=== PATIENT | female | born 1950 | race Caucasian/White ===

== ENCOUNTER 2017-03-14 12:55 | Emergency (ER) | payer OTHER ==
--- NOTE | ~2017-03-14 | CT2 ---
[facility] A Service of [facility] RADIOLOGY TEXT RESULTS PATIENT: ONI VERMA LOCATION: SED : 48 UNIT #: [id number] AGE: [address]: Kamar Elizabeth MD SEX: F ORDER DR: [id number] [place] [id number] E MR#: [id number] Acc #: [id number] NAME: ONI VERMA : 1950 SEX: F STUDY DATE/TIME: 03/14/2017 14:08 UNIT: SED ROOM: STUDY DESCRIPTION: CT Abd and Pelv W Cont Attending Physician: Kamar Elizabeth M.D. Ordering Physician: Kamar Elizabeth M.D. Primary Care Physician: Primary Care Physician No MEDICAL IMAGING REPORT This report is preliminary unless electronic signature is present. EXAM CT abdomen and pelvis, 03/14 INDICATION Mid abdominal pain with diarrhea for 1 day. Pain currently rates 8/10. TECHNIQUE Axial images were obtained through the abdomen and pelvis following IV contrast administration. Multiplanar reformats were obtained. This CT exam was performed with one or more of the following radiation dose reduction techniques: automatic exposure control, adjustment of mA and/or kV according to patient size, and iterative reconstruction. COMPARISON No comparison. FINDINGS ABDOMEN: Lung bases are clear except for some dependent atelectasis. Gallbladder appears normal. There is no biliary obstruction. The solid abdominal organs are normal. There is no adenopathy or free fluid. There is some wall thickening in the descending colon suggesting segmental colitis. The remainder of the GI tract is within normal limits. PELVIS: The appendix is normal. The remainder of the GI tract is normal as well. Solid pelvic organs are normal. The urinary bladder is normal. No free fluid is identified. IMPRESSION 1. Mild wall thickening in the descending colon suggesting segmental colitis. The remainder of the GI tract, including the appendix, is normal. 2. Remainder of the abdomen and pelvis CT is within normal limits as [facility] A Service of [facility] RADIOLOGY TEXT RESULTS PATIENT: ONI VERMA LOCATION: SED : 48 UNIT #: [id number] AGE: [address]: Kamar Elizabeth MD SEX: F ORDER DR: bayron. Dictated by... Joe Guzmán Jr., M.D. THIS IS AN ELECTRONICALLY VERIFIED REPORT Joe Guzmán Jr., M.D. at 03/14/2017 5:05 PM ROCHELLE/luisana TD: 03/14/2017 15:49 JOB #: [id number] MEDICAL IMAGING REPORT Page 1 of 1
[~2017-03-14 12:55] MED LIST: HCTZ PO; ZOCOR PO
[2017-03-14 13:34] LABS: BASOPHIL% 0.4 % (0-2.5); EOSINOPHIL% 0.2 % (0.0-7.0); HEMATOCRIT 42.3 % (35.0-45.0); HEMOGLOBIN 13.6 gm/dL (12.0-16.0); LYMPHOCYTE% 21.9 % (17.0-45.0); MEAN CORPUSCULAR HEMOGLOBIN 24.5 PG (28-34); MEAN CORPUSCULAR HGB CONC 32.3 g/dL (30-36); MEAN PLATELET VOLUME 6.8 FL (6.5-11.5); MONOCYTE# 0.6 X10e3 (0-1.0); MONOCYTE% 6.8 % (3.0-12.0); NEUTROPHIL# 6.5 X10e3 (1.5-7.1); NEUTROPHIL% 70.7 % (40-75); PLATELET COUNT 396 X10e3 (140-420); RED BLOOD COUNT 5.57 X10e (3.90-5.30); RED CELL DISTRIBUTION WIDTH 13.9 % (11.0-15.5); WHITE BLOOD COUNT 9.2 X10e3 (4.0-10.5)
[2017-03-14 13:45] LABS: DIFF IND NO
[2017-03-14 13:54] LABS: URINE SOURCE CLEAN CATCH
[2017-03-14 13:58] LABS: ALBUMIN SERUM 4.2 g/dL (3.5-5.0); BILIRUBIN, DIRECT 0.1 mg/dL (0.0-0.2); BILIRUBIN,INDIRECT 0.6 mg/dL (0.0-0.9); BILIRUBIN,TOTAL 0.7 mg/dL (0.2-2.0); CALCIUM SERUM 9.8 mg/dL (8.4-10.2); CREATININE SERUM 0.7 mg/dL (0.6-1.4); POTASSIUM 3.4 mmol/L (3.5-5.1); PROTEIN TOTAL SERUM 8.3 g/dL (6.0-8.3)
[2017-03-14 13:58] LABS: URINE APPEARANCE CLEAR; URINE BILIRUBIN NEG (NEG); URINE BLOOD NEG (NEG); URINE COLOR YELLOW; URINE GLUCOSE NEG (NORM); URINE KETONE NEG (NEG); URINE LEUKOCYTE ESTERASE NEG (NEG); URINE NITRATE NEG (NEG); URINE PROTEIN NEG (NEG); URINE SPECIFIC GRAVITY <=1.005 (1.003-1.035); URINE UROBILINOGEN 0.2 MG/DL (NORM)
[2017-03-14 14:04] LABS: MICRO INDICATED? NO
[2017-06-06] MEDS ORDERED: CENTRUM PO (06:28)
[2017-06-06] MEDS ORDERED: BENTYL20 MG PO (06:29)
[2017-06-06] MEDS ORDERED: HYDROCHLOROTHIA25 MG PO (06:29)
== END 2017-03-14 15:52 | disposition home or self-care (01) ==
LOC: SED 12:55
PROVIDERS: Emergency Medicine
DX: K52.9 Noninfective gastroenteritis and colitis, unspecified (principal); I10 Essential (primary) hypertension
CPT/HCPCS: 36415; 74177; 80048; 80076; 81003; 83690; 85025; 96361; 96365; 96375; 99284; C9113; J1956; J2405; Q9967

== ENCOUNTER → 2017-06-06 | Day surgery (SDC) | payer OTHER ==
[~2017-06-06] MED LIST changes: +BENTYL20 MG PO; +CENTRUM PO; +HYDROCHLOROTHIA25 MG PO
--- NOTE | ~2017-06-06 | OR ---
Unit #: [id number] #: [id number] Patient: ONI VERMA [id number] [address] [place], [place] [address] [id number] MR#: [id number] NAME: ONI VERMA ROOM: Date of Procedure: 06/06/2017 Admission Date: 06/06/2017 Surgeon: Eleazar Rome Jr., M.D. : 1950 Attending Physician: Eleazar Rome Jr., M.D. OPERATIVE REPORT INDICATIONS FOR PROCEDURE The patient is a 66-year-old [place] female who recently presented to the office complaining of some intermittent rectal bleeding. She has had no previous colonoscopy and is brought in at this time for colonoscopy to determine the source of her bleeding. She understands the procedure including the risks, including that of perforation and bleeding, and consents. PREOPERATIVE DIAGNOSIS Lower gastrointestinal bleeding etiology? POSTOPERATIVE DIAGNOSES Multiple large dilated internal hemorrhoids, probably a source of her bleeding with a small polyp in the cecum 1 mm diameter. There were no other specific abnormalities. ANESTHESIA MAC anesthesia. PROCEDURES PERFORMED Flexible colonoscopy to the distal ileum with biopsy of a small cecal polyp. DESCRIPTION OF PROCEDURE The patient was positioned in Magallanes position with left side down. After being given MAC anesthesia, digital rectal examination was performed, which revealed no palpable masses or tenderness. No blood or stool in the rectal ampulla. Multiple internal hemorrhoids that were dilated were palpable. The Olympus colonoscope was advanced through the anal canal up in the rectum and retroflexed down to the area of the anorectal region. There were large dilated internal hemorrhoids, which were not actively bleeding and no evidence of any fissures. The scope was then straightened and advanced up the rectosigmoid, in the sigmoid, descending colon areas, around the splenic flexure and the transverse colon, around the hepatic flexure and ascending colon, down to the area of the cecum. The light pipe of the scope could be seen transilluminating through the right lower quadrant abdominal wall area. There was a small cecal polyp, which was biopsied and removed with one bite with the cold biopsy forceps without bleeding. The scope was advanced up the distal ileum approximately 10 to 12 inches. There was no evidence of any ileitis or inflammatory bowel disease. The scope was slowly removed. There were no tumors except for the one polyp. No other polyps, no cancer, no AVMs. No evidence any Unit #: [id number] #: [id number] Patient: URAIKLANG,ANISONG colitis, diverticulosis or diverticulitis. The caliber of the colon appeared normal throughout. The scope was removed. The patient tolerated the procedure well and discharged in satisfactory condition. Dictated by... Eleazar Rome Jr., MNia GREEN/mariel TD: 06/06/2017 10:46 JOB #: [id number] OPERATIVE REPORT Page 1 of 1 X Eleazar Rome MD X PROCEDURE OPERATIVE NOTE
== END | disposition home or self-care (01) ==
LOC: COPS 06:05
DX: D12.0 Benign neoplasm of cecum (principal); K64.8 Other hemorrhoids; I10 Essential (primary) hypertension; E78.5 Hyperlipidemia, unspecified; E78.00 Pure hypercholesterolemia, unspecified; Z87.19 Personal history of other diseases of the digestive system; Z79.899 Other long term (current) drug therapy; Z98.51 Tubal ligation status; Z98.890 Other specified postprocedural states
CPT/HCPCS: 88305